=== PATIENT | male | born 1980 | race Caucasian/White ===

== ENCOUNTER 2019-07-06 13:31 | Emergency (ER) | payer OTHER, BC ==
[2019-07-06 13:45] VITALS: BP 132/90; PULSE 99
--- NOTE | 2019-07-06 13:49 | EDM.PDOC ---
ED HPI GENERAL MEDICAL PROBLEM - General Chief Complaint: Back Pain or Injury Stated Complaint: HURT BACK AT WORK Time Seen by Provider: 07/06/19 13:47 Source of Information: Reports: Patient, RN, RN Notes Reviewed History Limitations: Reports: No Limitations - History of Present Illness INITIAL COMMENTS - FREE TEXT/NARRATIVE: Pt presents to the ER by POV with c/o back pain sustained by lifting a case of soda pop at his work in [place]. Pt describes intense aching in the low back with muscle spasms, and pain radiating through the right buttock into the right thigh. Denies loss of bowel or bladder control, saddle area numbness, or motor weakness. Denies any previous history of low back pain or injury. Pt rates the pain 11/11. Onset: Today, Sudden Duration: Constant Location: Reports: Back, Radiates to (Rt buttock and Rt thigh) Quality: Reports: Ache, Pressure, Other (Spasm) Severity: Moderate Improves with: Reports: None Worsens with: Reports: Movement Context: Reports: Lifting Associated Symptoms: Reports: No Other Symptoms Lower Back Pain Score (Numeric/FACES): 8 - Related Data Allergies Allergy/AdvReac Type Severity Reaction Status Date / Time No Known Allergies Allergy Verified 07/06/19 13:45 Home Meds: Home Meds Fenofibrate Nanocrystallized [Fenofibrate] 145 mg PO DAILY 09/06/14 [History] Lisinopril 10 mg PO DAILY 09/06/14 [History] Venlafaxine HCl [Venlafaxine ER] 75 mg PO DAILY 09/06/14 [History] Past Medical History - Past Health History Medical/Surgical History: Denies Medical/Surgical History Social & Family History - Family History Family Medical History: Noncontributory - Living Situation & Occupation Living situation: Reports: , with Spouse Occupation: Employed ED ROS GENERAL - Review of Systems Review Of Systems: Comprehensive ROS is negative, except as noted in HPI. ED EXAM,LOWER BACK PAIN/INJURY - Physical Exam Exam: See Below Exam Limited By: No Limitations General Appearance: Alert, WD/WN, No Apparent Distress, Obese Head: Atraumatic, Normocephalic Neck: Normal Inspection, Non-Tender, Full Range of Motion Respiratory/Chest: No Respiratory Distress, Lungs Clear, Normal Breath Sounds, No Accessory Muscle Use, Chest Non-Tender Cardiovascular: Normal Peripheral Pulses, Regular Rate, Rhythm GI/Abdominal: Normal Bowel Sounds, Soft, Non-Tender, Other (Benign obese abdomen ) (Male) Exam: Deferred Rectal (Males) Exam: Deferred Back Exam: Decreased Range of Motion (Lumbar, due to pain), Muscle Spasm ( Lumbar R>L), Paraspinal Tenderness (Lumbar R>L). No: CVA Tenderness (L), CVA Tenderness (R), Vertebral Tenderness Extremities: Normal Inspection, Normal Range of Motion, Non-Tender, No Pedal Edema, Normal Capillary Refill Neurological: Alert, Normal Mood/Affect, Normal Dorsiflexion, CN II-XII Intact, Normal Plantar Flexion, No Motor/Sensory Deficits, Oriented x 3, Other ( Antalgic gait due to low back pain.) Psychiatric: Normal Affect, Normal Mood Skin Exam: Warm, Dry, Intact, Normal Color, No Rash Course - Vital Signs Last Recorded V/S: Last Vital Signs Temp 97.6 F 07/06/19 13:42 Pulse 99 07/06/19 13:42 Resp 18 07/06/19 13:42 BP 132/90 07/06/19 13:42 Pulse Ox 100 07/06/19 13:42 - Orders/Labs/Meds Meds: Medications Discontinued Medications Generic Name Dose Route Start Last Admin Trade Name Rufinoq PRN Reason Stop Dose Admin Hydrocodone Bitart/Acetaminophen 1 tab 07/06/19 14:06 07/06/19 14:18 Noble 325-10 Mg PO 07/06/19 14:07 1 tab ONETIME ONE Administration Cyclobenzaprine HCl 10 mg 07/06/19 14:06 07/06/19 14:18 Flexeril PO 07/06/19 14:07 10 mg ONETIME ONE Administration Ketorolac Tromethamine 60 mg 07/06/19 14:05 07/06/19 14:19 Toradol IM 07/06/19 14:06 60 mg ONETIME ONE Administration - Radiology Interpretation Free Text/Narrative:: No indication for imaging of low back or L-spine at this time. Departure - Departure Time of Disposition: 14:23 Disposition: Home, Self-Care 01 Condition: Good Clinical Impression: Work related injury Acute low back pain with right-sided sciatica Qualifiers: Back pain laterality: right Qualified Code(s): M54.41 - Lumbago with sciatica, right side - Discharge Information *PRESCRIPTION DRUG MONITORING PROGRAM REVIEWED*: Not Applicable *COPY OF PRESCRIPTION DRUG MONITORING REPORT IN PATIENT NAOMIE: Not Applicable Instructions: Acute Back Pain, Adult, Sciatica Forms: ED Department Discharge Additional Instructions: Rx: Dexamethasone 4mg Rx: Cyclobenzaprine 10mg *Do not drive or work while under the influence of this medication. Avoid bending or twisting at the waist. No lifting over 20lbs. Otherwise light activity as tolerated. Ice packs to area of back pain for the first 3 days, then alternate heat and ice. Follow up in clinic in 3 to 5 days for recheck, and discuss return to work and/ or further work restrictions if needed. Sepsis Event Note - Evaluation Sepsis Screening Result: No Definite Risk - Focused Exam Vital Signs: Vital Signs Temp Pulse Resp BP Pulse Ox 07/06/19 13:42 97.6 F 99 18 132/90 100 Date Exam was Performed: 07/06/19 Time Exam was Performed: 14:20
[2019-07-06] MEDS ORDERED: Ketorolac 30 MG/ML SDV IM ONE (14:05)
[2019-07-06] MEDS ORDERED: Acetaminophen/HYDROcodone 325-10 MG Tab PO ONE (14:06)
[2019-07-06] MEDS ORDERED: Cyclobenzaprine 10 MG Tab PO ONE (14:06)
== END 2019-07-06 14:34 | disposition home or self-care (01) ==
LOC: DL.ED 13:31
DX: M54.41 Lumbago with sciatica, right side (principal); Z79.899 Other long term (current) drug therapy; X50.0XXA Overexertion from strenuous movement or load, initial encounter; Y99.0 Civilian activity done for income or pay
CPT/HCPCS: 96372; 99283; A9270; J1885